=== PATIENT | male | born 2000 | race Caucasian/White ===

== ENCOUNTER 2024-11-27 10:00 | Emergency (ER) | payer OTHER ==
[~2024-11-27] VITALS: Ht 190.5 cm; Wt 120.7 kg
[2024-11-27] MEDS ORDERED: AMOXICILLIN500 MG PO (10:25)
[2024-11-27 10:32] VITALS: BP 137/93
== END 2024-11-27 10:33 | disposition home or self-care (01) ==
LOC: ED 10:00
DX: H66.92 Otitis media, unspecified, left ear (principal); J45.909 Unspecified asthma, uncomplicated
CPT/HCPCS: 99282

== ENCOUNTER 2024-12-31 23:09 | Emergency (ER) | payer OTHER ==
[~2024-12-31] VITALS: Ht 190.5 cm; Wt 109.8 kg
[~2024-12-31 23:09] MED LIST: AMOXICILLIN500 MG PO
[2024-12-31 23:39] LABS: BILIRUBIN, URINE NEGATIVE (negative); BLOOD/HGB, URINE NEGATIVE (Negative); KETONE, URINE SMALL (Negative); LEUK ESTERASE, URINE NEGATIVE (negative); NITRITE, URINE NEGATIVE (negative)
[2024-12-31 23:52] LABS: BASOPHILS 0.8 % (0-2); EOSINOPHILS 1.1 % (0-6); HEMATOCRIT 44.1 % (35.0-50.0); LYMPHOCYTES 28.3 % (24-44); MCHC 34.1 g/dl (30-36); MONOCYTES 8.2 % (0-12); NEUTROPHILS 61.6 % (39-80); PLATELET COUNT 232 K/uL (140-440); RBC 4.85 M/ul (4.3-5.7); RDW 13.1 (10.5-15.0)
[2024-12-31 23:54] LABS: AMPHETAMINES, URINE NEGATIVE (NEGATIVE); BARBITURATES, URINE NEGATIVE (NEGATIVE); BENZODIAZEPINE, URINE NEGATIVE (NEGATIVE); BUPRENORPHINE, URINE NEGATIVE (NEGATIVE); CANNABINOID, URINE POSITIVE (NEGATIVE); COCAINE, URINE NEGATIVE (NEGATIVE); ECSTASY, URINE NEGATIVE (NEGATIVE); FENTANYL, URINE NEGATIVE (NEGATIVE); METHADONE, URINE NEGATIVE (NEGATIVE); OPIATES, URINE NEGATIVE (NEGATIVE); OXYCODONE, URINE NEGATIVE (NEGATIVE); PHENCYCLIDINE, URINE NEGATIVE (NEGATIVE)
[2025-01-01 00:19] LABS: ACETAMINOPHEN 0 ug/mL (10-30); ALBUMIN 4.2 g/dL (3.4-5.0); ALCOHOL, MEDICAL <3 ng/dL (<3); ALKALINE PHOSPHATASE 70 U/L (46-116); ALT (SGPT) 26 U/L (14-59); ANION GAP 13.5 (7-21); AST (SGOT) 15 U/L (15-37); BILIRUBIN, TOTAL 0.7 ng/dL (0.2-1.0); BUN/CREATININE RATIO 15.85 (6.0-28.6); CALCIUM 9.1 mg/dL (8.5-10.1); CARBON DIOXIDE 26 mmol/L (21-32); CHLORIDE 107 mmol/L (98-107); CREATININE, SERUM 0.82 mg/dL (0.70-1.30); GLOMERULAR FILTRATION RATE,EST 124 mL/min (>60); POTASSIUM 3.5 mmol/L (3.5-5.1); PROTEIN, TOTAL 7.2 g/dL (6.4-8.2); SALICYLATE 3.4 mg/dL (2.8-20.0); TSH, 3RD GENERATION 3.722 uIU/mL (0.358-3.740); UREA NITROGEN 13 mg/dL (7-18)
[2025-01-01] MEDS ORDERED: NICOTINE 21 MG/24 HR 1 EA TDSY TD SCH (11:00)
[2025-01-01] MEDS ORDERED: ARIPiprazole 10 MG TAB PO SCH (15:47)
[2025-01-01 16:31] LABS: CORONAVIRUS COVID-19 AG NEGATIVE (NEGATIVE)
[2025-01-01 22:55] VITALS: BP 128/70
== END 2025-01-01 22:55 | disposition home or self-care (01) ==
LOC: ED 23:09
PROVIDERS: Emergency Medicine; Internal Medicine
DX: R45.851 Suicidal ideations (principal); J45.909 Unspecified asthma, uncomplicated
CPT/HCPCS: 36415; 80053; 80307; 81003; 84443; 85025; 99284; G0480